=== PATIENT | male | born 1985 | race African-American/Black ===

== ENCOUNTER 2021-06-05 01:54 | Emergency (ER) | payer SELFPAY ==
[2021-06-05 02:50] LABS: Absolute Lymphocytes (CBC) 2.5 K/uL (0.7-4.9); Basophils % 0.3 % (0-1.3); Hematocrit 36.9 % (39.6-49.0); Lymphocytes % 12.7 % (15.3-44.8); MPV 8.5 fL (7.6-11.3); RBC Red Blood Cell Count 4.46 M/uL (4.33-5.43)
[2021-06-05 02:59] LABS: Albumin 4.4 g/dL (3.4-5.0); Bilirubin Direct 0.2 mg/dL (0-0.2); Bilirubin Total 0.8 mg/dL (0.2-1.0); Potassium 3.3 mmol/L (3.5-5.1); Protein, Total 7.9 g/dL (6.4-8.2)
[2021-06-05] MEDS ORDERED: ONDANSETRON 4 MG/2 ML VIAL ONE (03:06)
[2021-06-05] MEDS ORDERED: MORPHINE 4 MG/ML SYR ONE (03:06)
[2021-06-05] MEDS ORDERED: KETOROLAC 30 MG/ML INJ ONE (03:07)
[2021-06-05] MEDS ORDERED: NA CHLORIDE 0.9% 1,000 ML ONE (03:17)
--- NOTE | 2021-06-05 03:51 | ER ---
Nurse's Notes [facility] Name: Jose Enrique Spicer Age: 35 yrs Sex: Male : 1985 Arrival Date: 06/05/2021 Time: 01:57 Bed 6 Private MD: Diagnosis: Hydronephrosis with renal and ureteral calculous obstruction;Hypokalemia;Elevated white blood cell count Presentation: 06/05 02:02 Chief complaint: Patient states: Pt states he thinks he might have a kidney stone. wg States he had one 6 years ago and feels like same. Pt c/o sharp left flank pain with nausea, no vomiting, diarrhea. Hasn't felt sick or feverish. Denies SOB, CP and dizziness. Pt having a lot of belching in triage, unable to sit still. No diaphoresis noted. Coronavirus screen: Vaccine status: Patient reports being unvaccinated. At this time, the client does not indicate any symptoms associated with coronavirus-19. Ebola Screen: Patient negative for fever greater than or equal to 101.5 degrees Fahrenheit, and additional compatible Ebola Virus Disease symptoms Patient denies exposure to infectious person. Patient denies travel to an Ebola-affected area in the 21 days before illness onset. Initial Sepsis Screen: Does the patient meet any 2 criteria? No. Patient's initial sepsis screen is negative. Does the patient have a suspected source of infection? No. Patient's initial sepsis screen is negative. Risk Assessment: Do you want to hurt yourself or someone else? Patient reports no desire to harm self or others. Onset of symptoms was June 05, 2021 at 00:00. 02:02 Method Of Arrival: Ambulatory 02:02 Acuity: PATRICIA 3 wg Triage Assessment: 02:05 General: Appears distressed, uncomfortable, well groomed, well developed, Behavior is wg cooperative, anxious, restless. Pain: Complains of pain in Left Flank. GI: Abdomen is flat, round Reports nausea. Historical: - Allergies: 02:05 No Known Allergies; wg - Home Meds: 02:05 None [Active]; wg - PMHx: 02:05 None; wg - Immunization history:: Adult Immunizations up to date. - Social history:: Smoking status: Patient denies any tobacco usage or history of. - Family history:: not pertinent. Screenin:00 Abuse screen: Denies threats or abuse. Nutritional screening: No deficits noted. ch4 Tuberculosis screening: No symptoms or risk factors identified. Fall Risk None identified. Assessment: 02:21 General: Appears uncomfortable, Behavior is cooperative. Pain: Complains of pain in ch4 back and abdomen. Pain: Pain began 2 hours ago. Neuro: No deficits noted. Cardiovascular: No deficits noted. Respiratory: No deficits noted. GI: No deficits noted. Bowel sounds present X 4 quads. Abd is soft and non tender X 4 quads. : Reports inability to void. EENT: No deficits noted. Derm: No deficits noted. Vital Signs: 02:02 BP 148 / 89; Pulse 88; Resp 20; Temp 98.9; Pulse Ox 99% on R/A; Weight 65.77 kg; Height wg 5 ft. 10 in. (177.80 cm); Pain 8/10; 02:23 BP 139 / 96; Pulse 94; Resp 18; Pulse Ox 100% ; ch4 03:58 BP 136 / 80; Pulse 80; Resp 17; Temp 98.8; Pulse Ox 98% on R/A; ch4 02:02 Body Mass Index 20.81 (65.77 kg, 177.80 cm) wg ED Course: 01:57 Patient arrived in ED. wm 02:05 Triage completed. wg 02:05 Arm band placed on right wrist. wg 02:13 Kristyn Brito, RN is Primary Nurse. ch4 02:21 Inserted saline lock: 20 gauge in right antecubital area, using aseptic technique. ch4 02:38 Esdras Mathur MD is Attending Physician. emily 03:00 CT Stone Protocol In Process Unspecified. EDMS 03:50 Roberth Gregg MD is Referral Physician. emily 03:58 IV discontinued, intact, bleeding controlled, No redness/swelling at site. Pressure ch4 dressing applied. Administered Medications: 02:48 Drug: morphine 4 mg Route: IVP; Site: right antecubital; ch4 02:48 Drug: Zofran (Ondansetron) 4 mg Route: IVP; Site: right antecubital; ch4 02:49 Drug: Ketorolac 30 mg Route: IVP; Site: right antecubital; ch4 03:00 Drug: NS 0.9% 1000 ml Route: IV; Rate: 1 bolus; Site: right antecubital; ch4 03:57 Drug: Rocephin (cefTRIAXone) 1 grams Route: IV; Rate: per protocol; Site: right ch4 antecubital; 03:57 Drug: Flomax (tamsulosin) 0.4 mg Route: PO; ch4 03:59 Drug: NS 0.9% 1000 ml Route: IV; Rate: 1 bolus; Site: right antecubital; ch4 Outcome: 03:50 Discharge ordered by MD. diaz 04:14 Patient left the ED. [facility] Signatures: Dispatcher [employer] EDMS Esdras Mathur MD MD cha Marsh, Wendy wm Herman, Christina, AMPARO RN [facility] Fernando Alejandro RN Corrections: (The following items were deleted from the chart) 02:07 02:02 Chief complaint: Patient states: Pt states he thinks he might have a kidney wg stone. States he had one 6 years ago and feels like same. Pt c/o sharp left flank pain with nausea, no vomiting, diarrhea. Hasn't felt sick or feverish. Denies SOB, CP and dizziness. wg
--- NOTE | 2021-06-05 03:51 | EDPHYS ---
Physician Documentation [facility] Name: Jose Enrique Spicer Age: 35 yrs Sex: Male : 1985 Arrival Date: 06/05/2021 Time: 01:57 Bed 6 Private MD: MARTINA Physician Esdras Mathur HPI: 06/05 02:59 This 35 yrs old Black Male presents to ER via Ambulatory with complaints of Possible emily Kidney Stone. 02:59 The patient presents with abdominal pain in the left upper quadrant, in the left lower emily quadrant. Onset: The symptoms/episode began/occurred just prior to arrival. The patient complains of pain in the left low back and left mid back. The pain radiates to the left low back and left mid back. Onset: The symptoms/episode began/occurred 5 hour(s) ago. Modifying factors: The symptoms are alleviated by nothing. the symptoms are aggravated by nothing. The symptoms radiate to the left flank. Associated signs and symptoms: The patient has no apparent associated signs or symptoms. Modifying factors: The symptoms are alleviated by nothing, the symptoms are aggravated by nothing. Historical: - Allergies: 02:05 No Known Allergies; wg - Home Meds: 02:05 None [Active]; wg - PMHx: 02:05 None; wg - Immunization history:: Adult Immunizations up to date. - Social history:: Smoking status: Patient denies any tobacco usage or history of. - Family history:: not pertinent. ROS: 02:59 Constitutional: Negative for fever, chills, and weight loss, Eyes: Negative for injury, emily pain, redness, and discharge, ENT: Negative for injury, pain, and discharge, Neck: Negative for injury, pain, and swelling, Cardiovascular: Negative for chest pain, palpitations, and edema, Respiratory: Negative for shortness of breath, cough, wheezing, and pleuritic chest pain, Abdomen/GI: Negative for abdominal pain, nausea, vomiting, diarrhea, and constipation, : Negative for injury, bleeding, discharge, and swelling, MS/Extremity: Negative for injury and deformity, Skin: Negative for injury, rash, and discoloration, Neuro: Negative for headache, weakness, numbness, tingling, and seizure, Psych: Negative for depression, anxiety, suicide ideation, homicidal ideation, and hallucinations, Allergy/Immunology: Negative for hives, rash, and allergies, Endocrine: Negative for neck swelling, polydipsia, polyuria, polyphagia, and marked weight changes, Hematologic/Lymphatic: Negative for swollen nodes, abnormal bleeding, and unusual bruising. 02:59 Back: Positive for flank pain, on the left. Exam: 02:59 Constitutional: This is a well developed, well nourished patient who is awake, alert, emily and in no acute distress. Head/Face: Normocephalic, atraumatic. Eyes: Pupils equal round and reactive to light, extra-ocular motions intact. Lids and lashes normal. Conjunctiva and sclera are non-icteric and not injected. Cornea within normal limits. Periorbital areas with no swelling, redness, or edema. ENT: Nares patent. No nasal discharge, no septal abnormalities noted. Tympanic membranes are normal and external auditory canals are clear. Oropharynx with no redness, swelling, or masses, exudates, or evidence of obstruction, uvula midline. Mucous membranes moist. Neck: Trachea midline, no thyromegaly or masses palpated, and no cervical lymphadenopathy. Supple, full range of motion without nuchal rigidity, or vertebral point tenderness. No Meningismus. Chest/axilla: Normal chest wall appearance and motion. Nontender with no deformity. No lesions are appreciated. Cardiovascular: Regular rate and rhythm with a normal S1 and S2. No gallops, murmurs, or rubs. Normal PMI, no JVD. No pulse deficits. Respiratory: Lungs have equal breath sounds bilaterally, clear to auscultation and percussion. No rales, rhonchi or wheezes noted. No increased work of breathing, no retractions or nasal flaring. Abdomen/GI: Soft, non-tender, with normal bowel sounds. No distension or tympany. No guarding or rebound. No evidence of tenderness throughout. Male : Normal genitalia with no discharge or lesions. Skin: Warm, dry with normal turgor. Normal color with no rashes, no lesions, and no evidence of cellulitis. MS/ Extremity: Pulses equal, no cyanosis. Neurovascular intact. Full, normal range of motion. Neuro: Awake and alert, GCS 15, oriented to person, place, time, and situation. Cranial nerves II-XII grossly intact. Motor strength 5/5 in all extremities. Sensory grossly intact. Cerebellar exam normal. Normal gait. Psych: Awake, alert, with orientation to person, place and time. Behavior, mood, and affect are within normal limits. 02:59 Back: pain, that is mild, that is moderate, ROM is normal, normal spinal alignment noted, CVA tenderness, that is mild, is noted on the left. Vital Signs: 02:02 BP 148 / 89; Pulse 88; Resp 20; Temp 98.9; Pulse Ox 99% on R/A; Weight 65.77 kg; Height wg 5 ft. 10 in. (177.80 cm); Pain 8/10; 02:23 BP 139 / 96; Pulse 94; Resp 18; Pulse Ox 100% ; ch4 03:58 BP 136 / 80; Pulse 80; Resp 17; Temp 98.8; Pulse Ox 98% on R/A; ch4 02:02 Body Mass Index 20.81 (65.77 kg, 177.80 cm) wg MDM: 02:38 Patient medically screened. [facility] 03:03 Data reviewed: vital signs, nurses notes, lab test result(s), CBC, electrolytes, [facility] radiologic studies, CT scan. 06/05 02:13 Order name: Basic Metabolic Panel; Complete Time: 03:31 06/05 02:13 Order name: CBC with Diff; Complete Time: 03:31 06/05 02:13 Order name: Hepatic Function; Complete Time: 03:31 wg 06/05 02:13 Order name: Lipase; Complete Time: 03:31 wg 06/05 02:41 Order name: CT Stone Protocol [facility] 06/05 02:13 Order name: IV Saline Lock; Complete Time: 02:13 06/05 02:13 Order name: Labs collected and sent; Complete Time: 02:13 wg Administered Medications: 02:48 Drug: morphine 4 mg Route: IVP; Site: right antecubital; ch4 02:48 Drug: Zofran (Ondansetron) 4 mg Route: IVP; Site: right antecubital; ch4 02:49 Drug: Ketorolac 30 mg Route: IVP; Site: right antecubital; ch4 03:00 Drug: NS 0.9% 1000 ml Route: IV; Rate: 1 bolus; Site: right antecubital; ch4 03:57 Drug: Rocephin (cefTRIAXone) 1 grams Route: IV; Rate: per protocol; Site: right ch4 antecubital; 03:57 Drug: Flomax (tamsulosin) 0.4 mg Route: PO; ch4 03:59 Drug: NS 0.9% 1000 ml Route: IV; Rate: 1 bolus; Site: right antecubital; ch4 Disposition Summary: 06/05/21 03:50 Discharge Ordered Location: Home emily Problem: new emily Symptoms: have improved emily Condition: Stable emily Diagnosis - Hydronephrosis with renal and ureteral calculous obstruction emily - Hypokalemia emily - Elevated white blood cell count emily Followup: emily - With: Private Physician - When: 2 - 3 days - Reason: Recheck today's complaints, Continuance of care, Re-evaluation by your physician Followup: emily - With: - When: 2 - 3 days - Reason: Recheck today's complaints, Re-evaluation by your physician Discharge Instructions: - Discharge Summary Sheet [facility] - Kidney Stones emily - Kidney Stones, [id number] emily - Hydronephrosis emily - Dietary Guidelines to Help Prevent Kidney Stones emily Forms: - Medication Reconciliation Form [facility] - Thank You Letter [facility] - Antibiotic Education [facility] - Prescription Opioid Use [facility] Prescriptions: - tamsulosin 0.4 mg Oral capsule - take 1 capsule by ORAL route once daily 1/2 hour following the same meal each [facility] day; 30 capsule; Refills: 0, Product Selection Permitted - Zofran 4 mg Oral Tablet - take 1 tablet by ORAL route every 12 hours As needed; 20 tablet; Refills: 0, [facility] Product Selection Permitted - Cipro 500 mg Oral Tablet - take 1 tablet by ORAL route every 12 hours for 7 days; 14 tablet; Refills: 0, [facility] Product Selection Permitted - Tylenol-Codeine #3 300 mg-30 mg Oral - take 2 tablet by ORAL route every 4-6 hours; 24 tablet; Refills: 0, Product [facility] Selection Permitted Signatures: Dispatcher [employer] Esdras Hurtado MD MD cha Herman, Christina, RN RN Fernando Lama RN wg
[2021-06-05] MEDS ORDERED: TAMSULOSIN 0.4 MG SR CAP ONE (04:02)
[2021-06-05] MEDS ORDERED: CEFTRIAXONE 1000 MG/VIAL ONE (04:02)
[2021-06-05 04:24] VITALS: BP 136/80; TEMP 98.8; O2SAT 98
--- NOTE | 2021-06-05 10:59 | RAD REPORT ---
EXAM DESCRIPTION: CT - Stone Protocol - 06/05/2021 6:52 am CLINICAL HISTORY: Abdominal distention;Flank pain COMPARISON: None Available. TECHNIQUE: CT of the abdomen and pelvis without IV contrast. Evaluation of the solid organs and vasc ulature is suboptimal due to lack of IV contrast. This exam was performed according to our department al dose-optimization program, which includes automated exposure control, adjustment of the mA and/or kV according to patient size and/or use of iterative reconstruction technique. FINDINGS: Lung Bases: The visualized lung bases are clear. Bones: No destructive bone lesions identified. Abdomen: Liver: The liver has normal size and density. Gallbladder: No calcified gallstones. Spleen, Pancreas, and Adrenal Glands: The spleen, pancreas, and adrenal glands are unremarkable. Kidneys: There is a 0.3 cm calculus in the proximal left ureter producing mild left hydronephrosis. P unctate bilateral nonobstructing nephrolithiasis. Vasculature: Aortoiliac atherosclerosis. IVC is unremarkable. Stomach: Small hiatal hernia. Other: No free intraperitoneal air. No free fluid or lymphadenopathy. Pelvis: Bladder: Urinary bladder is unremarkable. Bowel: No dilated loops of large or small bowel. Appendix: Normal appendix. Pelvis: Prostate is not enlarged. IMPRESSION: 1. There is a 0.3 cm calculus in the proximal left ureter producing mild left hydronep hrosis. 2. Punctate bilateral nonobstructing nephrolithiasis. Electronically signed by: Jimbo Beauchamp 06/05/2021 3:25 AM CDT Due to temporary technical issues with the PACS/Fluency reporting system, reports are being signed by the in house radiologist without review as a courtesy to ensure prompt reporting. The interpreting r adiologist is fully responsible for the content of the report.
== END 2021-06-05 04:14 | disposition home or self-care (01) ==
LOC: ER 01:54
DX: N13.2 Hydronephrosis with renal and ureteral calculous obstruction (principal); E87.6 Hypokalemia; D72.829 Elevated white blood cell count, unspecified
CPT/HCPCS: 36415; 74176; 76377; 80048; 80076; 83690; 85025; 96374; 96375; 99283; J2405; J7030